=== PATIENT | male | born 1995 | race Caucasian/White ===

== ENCOUNTER 2024-11-02 16:18 | Emergency (ER) | payer SELFPAY ==
[~2024-11-02] VITALS: Ht 177.8 cm; Wt 86.0 kg
[2024-11-02 16:32] VITALS: O2SAT 100
[2024-11-02 17:45] LABS: BASOPHILS % 0.7 % (0.0-2.0); EOSINOPHILS % 4.5 % (0.0-5.0); HEMATOCRIT. 45.5 % (42.0-52.0); HEMOGLOBIN. 15.3 g/dL (14.0-18.0); LYMPHOCYTES % 16.3 % (20.0-50.0); MEAN CORPUSCULAR HEMOGLOBIN 28.8 pg (28.0-32.0); MEAN CORPUSCULAR HGB CONC 33.6 g/dL (31.0-37.0); MEAN CORPUSCULAR VOLUME 85.7 fL (80.0-94.0); MEAN PLATELET VOLUME 7.7 fl (7.4-10.4); MONOCYTES % 8.3 % (2.0-8.0); NEUTROPHILS % 70.2 % (40.0-76.0); PLATELET 303 x1000/uL (130-400); RED BLOOD CELL COUNT 5.31 mill/uL (4.7-6.1); WHITE BLOOD COUNT 8.2 x1000/uL (4.5-11.0)
[2024-11-02 17:55] LABS: POTASSIUM 4.5 mEq/L (3.5-5.1)
[2024-11-02 17:57] LABS: CALCIUM 9.4 mg/dL (8.7-10.4)
[2024-11-02 17:58] LABS: PROTHROMBIN TIME 10.8 sec (9.6-11.0)
[2024-11-02 18:01] LABS: CREATININE 1.6 mg/dL (0.6-1.3)
[2024-11-02 18:30] LABS: CLARITY URINE CLEAR (CLEAR); COLOR URINE YELLOW (YELLOW); GLUCOSE URINE NEGATIVE (NEGATIVE); KETONES URINE NEGATIVE (NEGATIVE); LEUKOCYTE ESTERASE URINE NEGATIVE (NEGATIVE); NITRITE URINE NEGATIVE (NEGATIVE); OCCULT BLOOD URINE NEGATIVE (NEGATIVE); PH URINE 7.5 (4.5-8.0); PROTEIN URINE NEGATIVE (NEGATIVE); SPECIFIC GRAVITY URINE 1.013 (1.005-1.030); UROBILINOGEN URINE 0.2 E.U./dL (0.2-1.0)
[2024-11-02 19:33] VITALS: BP 120/59; PULSE 61; RESP 18; TEMP 37.1; O2SAT 100
== END 2024-11-02 20:37 | disposition home or self-care (01) ==
LOC: ER 16:48
DX: R31.9 Hematuria, unspecified (principal); Z79.899 Other long term (current) drug therapy
CPT/HCPCS: 36415; 80048; 81003; 85025; 99283